=== PATIENT | female | born 1985 | race Caucasian/White ===

== ENCOUNTER 2018-06-24 09:22 | Emergency (ER) | END 2018-06-24 12:09 | disposition home or self-care (01) ==

== ENCOUNTER 2018-06-26 10:26 | Observation (INO) | END 2018-06-27 13:16 | disposition home or self-care (01) ==

== ENCOUNTER 2018-07-20 10:34 | Outpatient (CLI) | END 2018-07-20 14:15 | disposition home or self-care (01) ==

== ENCOUNTER 2018-10-27 05:56 | Inpatient (IN) | END 2018-10-29 12:20 | disposition home or self-care (01) | DRG 807 ==